=== PATIENT | male | born 1950 | race Caucasian/White ===

== ENCOUNTER → 2016-12-15 | Outpatient (CLI) | payer OTHER ==
--- NOTE | 2016-12-15 18:20 | PCVCIMAG ---
APPROVED REPORT Study performed: 12/15/2016 15:27:03 EXAM: Comprehensive 2D, Doppler, and color-flow Echocardiogram Patient Location: Echo lab Status: routine BSA: 2.54 HR: 90 bpmBP: 136/78 mmHg Rhythm: NSR Other Information Study Quality: Adequate Risk Factors: Cardiac Risk Factors: FHX of CAD, SOB Indications Cardiomegaly Dyspnea with lying down. 2D Dimensions LVEF(%): 50.06 (>50%) IVSd: 12.82 (7-11mm)LVOT Diam: 19.52 (18-24mm) LVDd: 52.88 mm PWd: 11.60 (7-11mm)Ascending Ao: 36.05 (22-36mm) LVDs: 39.33 (25-40mm) Left Atrium: 50.18 (27-40mm) Aortic Root: 32.45 mm LV Single Plane 4CH: 57.34 % LV Single Plane 2CH: 52.28 %Carter's LVEF: 54.81 % Biplane EF: 51.6 % Volumes Left Atrial Volume (Systole) Single Plane 4CH: 61.69 mLSingle Plane 2CH: 61.55 mL LA ESV Index: 25.00 mL/m2 Aortic Valve AoV Peak Eusebio.: 1.68 m/s AO Peak Gr.: 11.26 mmHgLVOT Max P.38 mmHg LVOT Max V: 1.14 m/s JAVAD Vmax: 2.03 cm2 Mitral Valve E/A Ratio: 0.8 MV Decel. Time: 201.90 ms MV E Max Eusebio.: 0.75 m/s MV A Eusebio.: 0.91 m/s IVRT: 86.51 ms TDI E/Lateral E': 10.71E/Medial E': 12.50 Medial E' Eusebio.: 0.06 m/s Lateral E' Eusebio.: 0.07 m/s Pulmonary Valve PV Peak Eusebio.: 1.19 m/sPV Peak Gr.: 5.71 mmHg Pulmonary Vein P Vein S: 0.54 m/sP Vein A: 0.25 m/s P Vein D: 0.53 m/sP Vein A Dur.: 90.0 msec P Vein S/D Ratio: 1.02 Tricuspid Valve TR Peak Eusebio.: 2.37 m/sRAP Estimate: 7.00 mmHg TR Peak Gr.: 22.47 mmHg PA Pressure: 30.00 mmHg Left Ventricle The left ventricle is normal size. There is normal LV segmental wall motion. Mild concentric left ventricular hypertrophy. Left ventricular systolic function is normal. The left ventricular ejection fraction is within the normal range. LVEF is 55%. Grade I - abnormal relaxation pattern. Right Ventricle The right ventricle is normal size. The right ventricular systolic function is normal. Atria The left atrium size is normal. The right atrium size is normal. Aortic Valve The aortic valve is normal in structure. No aortic regurgitation is present. There is no aortic valvular stenosis. Mitral Valve The mitral valve is normal in structure. There is no mitral valve regurgitation noted. No evidence of mitral valve stenosis. Tricuspid Valve The tricuspid valve is normal in structure. Trace tricuspid regurgitation. Pulmonary artery pressure is 30 mmHg. Pulmonic Valve The pulmonary valve is normal in structure. There is no pulmonic valvular regurgitation. Great Vessels The aortic root is normal in size. IVC is normal in size and collapses with >50% inspiration. Pericardium There is no pericardial effusion. <Conclusion> The left ventricle is normal size. Mild concentric left ventricular hypertrophy. Left ventricular systolic function is normal. Grade I - abnormal relaxation pattern. The right ventricle is normal size. The left atrium size is normal. The aortic valve is normal in structure. There is no mitral valve regurgitation noted. Trace tricuspid regurgitation. Pulmonary artery pressure is 30 mmHg.
== END | disposition home or self-care (01) ==
LOC: PCVCIMAG 15:26
PROVIDERS: ATTEND Internal Medicine Cardiovascular Disease
DX: I07.1 Rheumatic tricuspid insufficiency (principal); R60.0 Localized edema; Z82.49 Family history of ischemic heart disease and other diseases of the circulatory system
CPT/HCPCS: 93306

== ENCOUNTER → 2017-01-23 | Outpatient (CLI) | payer OTHER | LOC: PCVCCLINIC 10:51 | PROVIDERS: ATTEND Internal Medicine | DX: I50.32 Chronic diastolic (congestive) heart failure (principal) | CPT/HCPCS: 36415 ==

== ENCOUNTER → 2017-02-07 | Outpatient (CLI) | payer OTHER | END | disposition home or self-care (01) | LOC: PCVCCLINIC 10:31 | PROVIDERS: ATTEND Internal Medicine | DX: I11.0 Hypertensive heart disease with heart failure (principal); I50.32 Chronic diastolic (congestive) heart failure; E78.5 Hyperlipidemia, unspecified; G47.33 Obstructive sleep apnea (adult) (pediatric); Z79.82 Long term (current) use of aspirin; Z79.899 Other long term (current) drug therapy | CPT/HCPCS: G0463 ==

== ENCOUNTER → 2017-04-04 | Outpatient (CLI) | payer OTHER | END | disposition home or self-care (01) | LOC: PCVCIMAG 09:52 | DX: I11.0 Hypertensive heart disease with heart failure (principal); I50.32 Chronic diastolic (congestive) heart failure; R06.00 Dyspnea, unspecified; E78.5 Hyperlipidemia, unspecified | CPT/HCPCS: 93325; 93351 ==

== ENCOUNTER → 2017-09-18 | Outpatient (CLI) | payer OTHER | END | disposition home or self-care (01) | LOC: PCVCCLINIC 14:27 | DX: I11.0 Hypertensive heart disease with heart failure (principal); I50.32 Chronic diastolic (congestive) heart failure; E78.5 Hyperlipidemia, unspecified; G47.33 Obstructive sleep apnea (adult) (pediatric); Z79.82 Long term (current) use of aspirin | CPT/HCPCS: 93005; G0463 ==